=== PATIENT | female | born 1930 | race Caucasian/White ===

== ENCOUNTER 2017-10-19 12:33 | Observation (INO) | payer OTHER ==
[2017-10-19 13:45] LABS: BASO % 1.4 % (0-2.0); EOS % 0.4 % (0-4.5); HEMATOCRIT 42.9 % (32.4-45.2); HEMOGLOBIN 13.7 GM/dL (10.7-15.3); MCH 26.2 pg (25.7-33.7); MEAN PLT VOLUME 9.5 fl (7.5-11.1); MONO % 6.7 % (3.8-10.2); NEUT % 71.5 % (42.8-82.8); PLATELET COUNT 201 K/MM3 (134-434); RBC 5.23 M/mm3 (3.60-5.2); RDW 14.9 % (11.6-15.6); WHITE BLOOD COUNT 7.7 K/mm3 (4.0-10.0)
--- NOTE | 2017-10-19 13:46 | PDOC ---
History of Present Illness - General Chief Complaint: Rectal Bleed Stated Complaint: BLOOD IN URINE Time Seen by Provider: 10/19/17 12:56 History Source: Patient Exam Limitations: No Limitations - History of Present Illness Initial Comments: 10/19/17 14:29 87f with pmh of GERD and arthritis presents with bright red blood per rectum when she wiped her BM twice through the night. Not on blood thinners, never happened to her before. Denies abdominal pain, weakness, dizziness, lightheadedness. Past History - Past Medical History Allergies/Adverse Reactions: Allergies Allergy/AdvReac Type Severity Reaction Status Date / Time Penicillins Allergy Verified 10/19/17 12:52 Home Medications: Ambulatory Orders Amlodipine Besylate [Norvasc] 10 mg PO DAILY 01/17/13 Aspirin [ASA] 81 mg PO DAILY 01/17/13 Simvastatin [Zocor] 20 mg PO HS 01/17/13 Crestor 20 mg PO DAILY 10/19/17 Meloxicam 15 mg PO DAILY 10/19/17 Asthma: No Cancer: No Cardiac Disorders: Yes CVA: No COPD: No Diabetes: Yes HTN: Yes Hypercholesterolemia: Yes - Suicide/Smoking/Psychosocial Hx Smoking Status: No Smoking History: Never smoked Number of Cigarettes Smoked Daily: 0 Hx Alcohol Use: No Drug/Substance Use Hx: No Substance Use Type: None Abd/GI Specific PMHX - Complaint Specific PMHX GERD: Yes *Physical Exam - Vital Signs Last Vital Signs Temp Pulse Resp BP Pulse Ox 98.1 F 85 18 152/68 99 10/19/17 12:49 10/19/17 12:49 10/19/17 12:49 10/19/17 12:49 10/19/17 12:49 ED Treatment Course - LABORATORY CBC & Chemistry Diagram: 10/19/17 17:00 10/19/17 13:34 Medical Decision Making - Medical Decision Making 10/19/17 15:20 All labs negative, hoever patient presented her bright red stool after going to bathroom. Will redraw CBC at 5:30pm 10/19/17 16:13 Ct abdomen and pelvis with contrast pending 10/19/17 19:[address] being sent to reading. 10/19/17 19:10 Patient signed out to Dr. Cunningham. *DC/Admit/Observation/Transfer Diagnosis at time of Disposition: Bright red blood per rectum - Referrals Referrals: Anthony Smith MD [Primary Care Provider] - - Patient Instructions - Post Discharge Activity
[2017-10-19 14:07] LABS: INR 1.03 (0.82-1.09); PROTHROMBIN TIME (PATIENT) 11.6 SEC (9.98-11.88)
--- NOTE | 2017-10-19 14:11 | PDOC ---
Attending Attestation - Resident Resident Name: Vasile Sales - ED Attending Attestation I have performed the following: I have examined & evaluated the patient, The case was reviewed & discussed with the resident, I agree w/resident's findings & plan, Exceptions are as noted - HPI HPI: 10/19/17 13:45 87y F hx of GERD, OA, HTN presents with 2 episodes of stool with some blood when she was wiping last night (bpr, non melantonic) on tissue and toilet paper tjhat stopped spontanoeusly. stool itself was brown in color and well formed, not black or red. No assoicated abdminal pain, dysuria, hematuria. Denies any cp , sob, lightheadedness, n/v. pt on baby asa but no other blood thinners exam soft abdomen w/o tenderness, rebound/guarding No hemrroids, red blood onted on rectal per resident spotting, possibly internal herorroids. no tenderness on abdomen, brown stool, doubt civerticular bleed. will ck guaiac, cbc will reassess the patient 10/19/17 14:23 guaiac positive will repeat CBC at 4 hrs - Physicial Exam PE: 10/24/17 02:42 see above - Medical Decision Making 10/19/17 15:24 pt had a bowel movement that was reddish mixed with stool will obtain CT to r/o diverticular disease as pt is actively having bloody stool here, will observe/admit for observation and trend HGB
[2017-10-19 14:13] LABS: ALK PHOS 50 U/L (45-117); ANION GAP 13 (8-16); BILIRUBIN,TOTAL 0.5 mg/dL (0.2-1.0); BLOOD UREA NITROGEN 28 mg/dL (7-18); CALCIUM 9.9 mg/dL (8.5-10.1); CHLORIDE 101 mmol/L (98-107); CO2 25 mmol/L (21-32); GLUCOSE,RANDOM 120 mg/dL (74-106); POTASSIUM 3.4 mmol/L (3.5-5.1); SGOT/AST 27 U/L (15-37); SGPT/ALT 29 U/L (12-78); SODIUM 139 mmol/L (136-145); TOT PROT 7.7 g/dl (6.4-8.2)
[2017-10-19 14:49] LABS: URINE APPEARANCE CLEAR; URINE BILIRUBIN NEGATIVE (NEGATIVE); URINE BLOOD NEGATIVE (NEGATIVE); URINE COLOR LTYELLOW; URINE GLUCOSE (UA) NEGATIVE (NEGATIVE); URINE KETONE NEGATIVE (NEGATIVE); URINE LEUK ESTERASE NEGATIVE (NEGATIVE); URINE NITRITE NEGATIVE (NEGATIVE); URINE PROTEIN NEGATIVE (NEGATIVE); URINE UROBILINOGEN NEGATIVE mg/dL (0.2-1.0)
[2017-10-19 17:06] LABS: BASO % 0.5 % (0-2.0); EOS % 1.6 % (0-4.5); HEMATOCRIT 40.8 % (32.4-45.2); HEMOGLOBIN 13.4 GM/dL (10.7-15.3); LYMPH % 20.7 % (8-40); MCH 26.6 pg (25.7-33.7); MCHC 32.7 g/dl (32.0-36.0); MEAN CELL VOLUME 81.4 fl (80-96); MEAN PLT VOLUME 9.3 fl (7.5-11.1); MONO % 8.4 % (3.8-10.2); NEUT % 68.8 % (42.8-82.8); PLATELET COUNT 167 K/MM3 (134-434); RBC 5.02 M/mm3 (3.60-5.2); RDW 14.7 % (11.6-15.6); WHITE BLOOD COUNT 7.9 K/mm3 (4.0-10.0)
--- NOTE | 2017-10-19 19:25 | PDOC ---
*Physical Exam - Vital Signs Last Vital Signs Temp Pulse Resp BP Pulse Ox 98.1 F 64 16 141/61 95 10/19/17 18:41 10/19/17 18:41 10/19/17 18:41 10/19/17 18:41 10/19/17 18:41 ED Treatment Course - LABORATORY CBC & Chemistry Diagram: 10/19/17 17:00 10/19/17 13:34 - ADDITIONAL ORDERS Additional order review: Laboratory Results 10/19/17 10/19/17 10/19/17 14:42 13:45 13:38 PT with INR 11.60 INR 1.03 Sodium Potassium Chloride Carbon Dioxide Anion Gap BUN Creatinine Creat Clearance w eGFR Random Glucose Calcium Total Bilirubin AST ALT Alkaline Phosphatase Total Protein Albumin Urine Color Ltyellow Urine Appearance Clear Urine pH 6.0 Ur Specific [place] 1.015 Urine Protein Negative Urine Glucose (UA) Negative Urine Ketones Negative Urine Blood Negative Urine Nitrite Negative Urine Bilirubin Negative Urine Urobilinogen Negative Ur Leukocyte Esterase Negative Stool Occult Blood Positive 10/19/17 13:34 PT with INR INR Sodium 139 Potassium 3.4 L Chloride 101 Carbon Dioxide 25 Anion Gap 13 BUN 28 H Creatinine 1.0 Creat Clearance w eGFR 52.57 Random Glucose 120 H Calcium 9.9 Total Bilirubin 0.5 D AST 27 ALT 29 Alkaline Phosphatase 50 Total Protein 7.7 Albumin 4.0 Urine Color Urine Appearance Urine pH Ur Specific [place] Urine Protein Urine Glucose (UA) Urine Ketones Urine Blood Urine Nitrite Urine Bilirubin Urine Urobilinogen Ur Leukocyte Esterase Stool Occult Blood 10/19/17 10/19/17 17:00 13:34 RBC 5.02 5.23 H MCV 81.4 82.0 MCHC 32.7 32.0 RDW 14.7 14.9 MPV 9.3 9.5 Neutrophils % 68.8 71.5 D Lymphocytes % 20.7 20.0 D Monocytes % 8.4 6.7 Eosinophils % 1.6 D 0.4 D Basophils % 0.5 1.4 *DC/Admit/Observation/Transfer Diagnosis at time of Disposition: Bright red blood per rectum - Discharge Dispostion Admit: Yes - Referrals Referrals: Anthony Smith MD [Primary Care Provider] - - Patient Instructions - Post Discharge Activity
--- NOTE | 2017-10-19 20:27 | HP ---
CHIEF COMPLAINT: Bright red blood per rectum PCP: Luis HISTORY OF PRESENT ILLNESS: This is an 87 year old female with a significant past medical history of GERD and arthritis on meloxicam and ASA who presented to the ED after 2 episodes BRBPR after wiping. In ED pt had an episode of brown stool mixed with bright red. Pt also reports crampy abdominal pain at times, especially just prior to moving her bowels. Pt denies any blood clots. ER course was notable for: (1) Hgb 13.7, repeat 13.4 (2) CT abd/pel neg for diverticulitis/colitis Recent Travel: pt denies PAST MEDICAL HISTORY: GERD, arthritis, HTN, HLD, ?DM-prior chart lists DM but pt denies problems with sugar and is on no medications PAST SURGICAL HISTORY: R foot surgery Social History: Smoking: pt denies Alcohol: pt denies Drugs: pt denies Family History: mother age 83, old age father age 53, shooting Allergies Penicillins Allergy (Verified 10/19/17 12:52) HOME MEDICATIONS: 3 Medication Instructions Recorded Amlodipine Besylate [Norvasc] 10 mg PO DAILY 01/17/13 Aspirin [ASA] 81 mg PO DAILY 01/17/13 Simvastatin [Zocor] 20 mg PO HS 01/17/13 Crestor 20 mg PO DAILY 10/19/17 Meloxicam 15 mg PO DAILY 10/19/17 REVIEW OF SYSTEMS CONSTITUTIONAL: Absent: fever, chills, diaphoresis, generalized weakness, malaise, loss of appetite, weight change HEENT: Absent: rhinorrhea, nasal congestion, throat pain, throat swelling, difficulty swallowing, mouth swelling, ear pain, eye pain, visual changes CARDIOVASCULAR: Absent: chest pain, syncope, palpitations, irregular heart rate, lightheadedness , peripheral edema RESPIRATORY: Absent: cough, shortness of breath, dyspnea with exertion, orthopnea, wheezing, stridor, hemoptysis GASTROINTESTINAL: Present: abdominal pain, hematochezia Absent: abdominal distension, nausea, vomiting, diarrhea, constipation, melena GENITOURINARY: Absent: dysuria, frequency, urgency, hesitancy, hematuria, flank pain, genital pain MUSCULOSKELETAL: Absent: myalgia, arthralgia, joint swelling, back pain, neck pain SKIN: Absent: rash, itching, pallor HEMATOLOGIC/IMMUNOLOGIC: Absent: easy bleeding, easy bruising, lymphadenopathy, frequent infections ENDOCRINE: Absent: unexplained weight gain, unexplained weight loss, heat intolerance, cold intolerance NEUROLOGIC: Absent: headache, focal weakness or paresthesias, dizziness, unsteady gait, seizure, mental status changes, bladder or bowel incontinence PSYCHIATRIC: Absent: anxiety, depression, suicidal or homicidal ideation, hallucinations. PHYSICAL EXAMINATION Vital Signs - 24 hr 3 10/19/17 10/19/17 10/19/17 12:49 18:41 20:17 Temperature 98.1 F 98.1 F 98.6 F Pulse Rate 85 Pulse Rate [ 64 63 Right] Respiratory 18 16 18 Rate Blood Pressure 152/68 Blood Pressure 141/61 135/55 [Left] O2 Sat by Pulse 99 95 93 L Oximetry (%) GENERAL: Awake, alert, and fully oriented, in no acute distress. HEAD: Normal with no signs of trauma. EYES: Pupils equal, round and reactive to light, extraocular movements intact, sclera anicteric, conjunctiva clear. No lid lag. EARS, NOSE, THROAT: Ears normal, nares patent, oropharynx clear without exudates. Moist mucous membranes. NECK: Normal range of motion, supple without lymphadenopathy, JVD, or masses. LUNGS: Breath sounds equal, clear to auscultation bilaterally. No wheezes, and no crackles. No accessory muscle use. HEART: Regular rate and rhythm, normal S1 and S2 without murmur, rub or gallop. ABDOMEN: Soft, nontender, not distended, normoactive bowel sounds, no guarding, no rebound, no masses. No hepatomegaly or splenomegaly. MUSCULOSKELETAL: Normal range of motion at all joints. No bony deformities or tenderness. No CVA tenderness. UPPER EXTREMITIES: 2+ pulses, warm, well-perfused. No cyanosis. No clubbing. No peripheral edema. LOWER EXTREMITIES: 2+ pulses, warm, well-perfused. No calf tenderness. No peripheral edema. NEUROLOGICAL: Cranial nerves II-XII intact. Normal speech. Normal gait. PSYCHIATRIC: Cooperative. Good eye contact. Appropriate mood and affect. SKIN: Warm, dry, normal turgor, no rashes or lesions noted, normal capillary refill. Laboratory Results - last 24 hr 3 10/19/17 10/19/17 10/19/17 13:34 13:34 13:38 WBC 7.7 RBC 5.23 H Hgb 13.7 Hct 42.9 MCV 82.0 MCH 26.2 MCHC 32.0 RDW 14.9 Plt Count 201 MPV 9.5 Neutrophils % 71.5 D Lymphocytes % 20.0 D Monocytes % 6.7 Eosinophils % 0.4 D Basophils % 1.4 PT with INR 11.60 INR 1.03 Sodium 139 Potassium 3.4 L Chloride 101 Carbon Dioxide 25 Anion Gap 13 BUN 28 H Creatinine 1.0 Creat Clearance w eGFR 52.57 Random Glucose 120 H Calcium 9.9 Total Bilirubin 0.5 D AST 27 ALT 29 Alkaline Phosphatase 50 Total Protein 7.7 Albumin 4.0 Urine Color Urine Appearance Urine pH Ur Specific [place] Urine Protein Urine Glucose (UA) Urine Ketones Urine Blood Urine Nitrite Urine Bilirubin Urine Urobilinogen Ur Leukocyte Esterase Stool Occult Blood 3 10/19/17 10/19/17 10/19/17 13:45 14:42 17:00 WBC 7.9 RBC 5.02 Hgb 13.4 Hct 40.8 MCV 81.4 MCH 26.6 MCHC 32.7 RDW 14.7 Plt Count 167 MPV 9.3 Neutrophils % 68.8 Lymphocytes % 20.7 Monocytes % 8.4 Eosinophils % 1.6 D Basophils % 0.5 PT with INR INR Sodium Potassium Chloride Carbon Dioxide Anion Gap BUN Creatinine Creat Clearance w eGFR Random Glucose Calcium Total Bilirubin AST ALT Alkaline Phosphatase Total Protein Albumin Urine Color Ltyellow Urine Appearance Clear Urine pH 6.0 Ur Specific [place] 1.015 Urine Protein Negative Urine Glucose (UA) Negative Urine Ketones Negative Urine Blood Negative Urine Nitrite Negative Urine Bilirubin Negative Urine Urobilinogen Negative Ur Leukocyte Esterase Negative Stool Occult Blood Positive Radiology Reports EXAM: ABDOMEN \T\ PELVIS CT with and without contrast DATE OF SERVICE: 2017-10-19 15:42:43 THIS IS A PRELIMINARY REPORT FROM [facility] HISTORY: Bright rectal bleeding. COMPARISON: None. FINDINGS: Mild apparent rectal and sigmoid colon wall thickening is likely due to poor distention of the lumen. Bowel wall evaluation is limited due to absence of oral contrast. No evidence of a perirectal abscess or induration is seen. No evidence of diverticulitis or colitis. No evidence of bowel obstruction, perforation, free air, free fluid or abscess. Cardiomegaly. Coronary artery calcifications. Right diaphragm elevation. Liver and spleen are unremarkable. No evidence of gallstone or biliary obstruction. Pancreas unremarkable. No urinary stone, mass or obstruction noted. Appendix not identified well. Pericecal fat is clear. 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 Grade 2 anterolisthesis at L5-S1 with bilateral L5 spondylolysis. Atrophy of the uterus. THIS DOCUMENT HAS BEEN ELECTRONICALLY SIGNED Dipak Hess MD 10/19/2017 19:38 EST ASSESSMENT/PLAN: 87yF with PMH GERD, arthritis, HTN, HLD presented to the ED after 2 episodes BRBPR noted when wiping. GI bleed - clear liquid diet until MN, then NPO - NS @ 83cc/hr - GI consult - DC ASA and meloxicam - serial cbc @ 12am and 6am - protonix 40mg IVPB hypokalemia - replete IV given GI bleed, repeat in am HTN - home exforge changed to formulary individual components - hold bp meds if SBP less than 100 HLD - cont home crestor DVT PPX - heparin held secondary to bleeding FEN - NS @ 83cc/hr - bmp in am - Clear liquids then NPO after MN Dispo: pt currently requires further observation and serial labs, admitted to observation status. Visit type - Emergency Visit Emergency Visit: Yes ED Registration Date: 10/19/17 Care time: The patient presented to the Emergency Department on the above date and was hospitalized for further evaluation of their emergent condition. - New Patient This patient is new to me today: Yes Date on this admission: 10/19/17 - Critical Care Critical Care patient: No Hospitalist Screening - Colonoscopy Questionnaire Colonoscopy Questionnaire: Colonoscopy Questionnaire - Patient: 50 - 75 years old and never had a screening colonoscopy: No History of colon or rectal polyps, or CA: No History of IBD, Crohn's disease or UC: No History of abdominal radiation therapy as a child: No - Relative: 1 with colon or rectal CA, or polyps at age 60 or younger: Unknown Colon or rectal CA diagnosed at age 45 or younger: Unknown Multiple relatives with colon or rectal CA: Unknown - Outcome: Screening Result: Negative Screen
[2017-10-19] MEDS ORDERED: KCL 10 MEQ IVPB 10 MEQ/100 ML INFUS.BAG IVPB SCH (20:30)
[2017-10-19] MEDS: POTASSIUM CHLORIDE 10 MEQ in SODIUM CHLORIDE 100 ML IVPB SCH ×3 (21:07→22:48)
[2017-10-19] MEDS ORDERED: KCL 10 MEQ IVPB 10 MEQ/100 ML INFUS.BAG IVPB ONE (21:07)
[2017-10-19] MEDS ORDERED: KCL 10 MEQ IVPB 20 MEQ/200 ML INFUS.BAG IVPB ONE (21:09)
[2017-10-19] MEDS ORDERED: CRESTOR 20 MG PO SCH (22:00)
[2017-10-19] MEDS: SODIUM CHLORIDE 1,000 ML IV SCH (22:44)
[2017-10-19] MEDS ORDERED: ROSUVASTATIN CA 10 MG TABLET (FP) ONE (22:47)
[2017-10-19] MEDS: ROSUVASTATIN CA 20 MG TABLET (FP) PO SCH (22:48)
[2017-10-20 00:57] VITALS: BMI 27.3
[2017-10-20] MEDS: POTASSIUM CHLORIDE 10 MEQ in SODIUM CHLORIDE 100 ML IVPB SCH (01:31)
[2017-10-20 02:54] LABS: HEMATOCRIT 41.7 % (32.4-45.2); HEMOGLOBIN 13.6 GM/dL (10.7-15.3); MCH 26.5 pg (25.7-33.7); MCHC 32.6 g/dl (32.0-36.0); MEAN CELL VOLUME 81.5 fl (80-96); MEAN PLT VOLUME 9.8 fl (7.5-11.1); PLATELET COUNT 184 K/MM3 (134-434); RBC 5.11 M/mm3 (3.60-5.2); RDW 14.7 % (11.6-15.6); WHITE BLOOD COUNT 10.6 K/mm3 (4.0-10.0)
[2017-10-20 07:40] LABS: BASO % 0.5 % (0-2.0); EOS % 0.7 % (0-4.5); HEMATOCRIT 41.6 % (32.4-45.2); HEMOGLOBIN 13.4 GM/dL (10.7-15.3); LYMPH % 20.7 % (8-40); MCH 26.4 pg (25.7-33.7); MCHC 32.1 g/dl (32.0-36.0); MEAN CELL VOLUME 82.1 fl (80-96); MEAN PLT VOLUME 9.6 fl (7.5-11.1); MONO % 8.3 % (3.8-10.2); NEUT % 69.8 % (42.8-82.8); PLATELET COUNT 193 K/MM3 (134-434); RBC 5.07 M/mm3 (3.60-5.2); RDW 15.1 % (11.6-15.6); WHITE BLOOD COUNT 8.4 K/mm3 (4.0-10.0)
[2017-10-20 08:02] LABS: CHLORIDE 103 mmol/L (98-107); POTASSIUM 3.4 mmol/L (3.5-5.1); SODIUM 139 mmol/L (136-145)
[2017-10-20 08:07] LABS: ANION GAP 10 (8-16); BLOOD UREA NITROGEN 22 mg/dL (7-18); CALCIUM 8.7 mg/dL (8.5-10.1); CO2 26 mmol/L (21-32); CREATININE 0.9 mg/dL (0.55-1.02); GLUCOSE,RANDOM 103 mg/dL (74-106)
[2017-10-20] MEDS ORDERED: PATIENT'S OWN MEDICATION (NON-FORMULARY) (Amlodipine/Valsartan/Hcthiazid [Amlod-Valsa-Hctz PO SCH (10:00)
[2017-10-20] MEDS ORDERED: HYDROCHLOROTHIAZIDE 25 MG TABLET (FP) PO SCH (10:00)
[2017-10-20] MEDS ORDERED: amLODIPine BESYLATE 10 MG TABLET (FP) PO SCH (10:00)
[2017-10-20] MEDS ORDERED: VALSARTAN 160 MG TABLET (UD) PO SCH (10:00)
[2017-10-20] MEDS ORDERED: POTASSIUM CHLORIDE TABS 20 MEQ TABLET.ER (FP) PO ONE (12:03)
--- NOTE | 2017-10-20 12:06 | PN ---
Progress Note, Physician Chief Complaint: today patient noted a few drops of blood per rectum when she went to bathroom - Current Medication List Current Medications: Active Medications Amlodipine Besylate (Norvasc -) 10 mg PO DAILY [facility] Last Admin: 10/20/17 09:04 Dose: 10 mg Hydrochlorothiazide (Hctz -) 25 mg PO DAILY [facility] Last Admin: 10/20/17 09:05 Dose: 25 mg Sodium Chloride (Normal Saline -) 1,000 mls @ 75 mls/hr IV ASDIR [facility] Last Admin: 10/19/17 22:44 Dose: 75 mls/hr Rosuvastatin Calcium (Crestor -) 20 mg PO HS [facility] Last Admin: 10/19/17 22:48 Dose: 20 mg Valsartan (Diovan -) 160 mg PO DAILY [facility] Last Admin: 10/20/17 09:04 Dose: 160 mg - Objective Vital Signs: Vital Signs Temperature 98.1 F 10/20/17 09:00 Pulse Rate 67 10/20/17 09:00 Respiratory Rate 20 10/20/17 09:00 Blood Pressure 147/57 10/20/17 09:00 O2 Sat by Pulse Oximetry (%) 95 10/20/17 09:00 Constitutional: Yes: Calm Cardiovascular: Yes: Regular Rate and Rhythm, S1, S2 Respiratory: Yes: CTA Bilaterally Gastrointestinal: Yes: Normal Bowel Sounds, Soft Edema: No Neurological: Yes: Alert, Oriented Labs: CBC, BMP 10/20/17 06:00 10/20/17 06:00 INR, PTT INR 1.03 (0.82-1.09) 10/19/17 13:38 Problem List - Problems (1) Bright red blood per rectum Assessment/Plan: h/h stable will keep NPO till seen by GI- possible EGD/colonscopy ppi Code(s): K62.5 - HEMORRHAGE OF ANUS AND RECTUM (2) HTN (hypertension) Assessment/Plan: norvasc and valsartan stop hctz given elevated bun Code(s): I10 - ESSENTIAL (PRIMARY) HYPERTENSION
[2017-10-20] MEDS ORDERED: PANTOPRAZOLE SODIUM 40 MG VIAL IVPUSH SCH (12:15)
[2017-10-20] MEDS: SODIUM CHLORIDE 1,000 ML IV SCH ×2 (13:46→21:27)
--- NOTE | 2017-10-20 17:04 | EKG ---
Test Reason : Blood Pressure : / mmHG Vent. Rate : 074 BPM Atrial Rate : 074 BPM P-R Int : 138 ms QRS Dur : 078 ms QT Int : 384 ms P-R-T Axes : 029 012 043 degrees QTc Int : 426 ms NORMAL SINUS RHYTHM NONSPECIFIC T WAVE ABNORMALITY ABNORMAL ECG WHEN COMPARED WITH ECG OF 18-JAN-2013 10:00, NO SIGNIFICANT CHANGE WAS FOUND Confirmed by COREEN DUNN MD ([id number]) on 10/20/2017 5:03:56 PM Referred By: Confirmed By:COREEN DUNN MD
[2017-10-20] MEDS ORDERED: SODIUM PHOSPHATE/NA BIPHOS 133 ML ENEMA PR ONE (20:20)
--- NOTE | 2017-10-20 20:29 | CON.GI ---
Consult Consult Specialty:: gastroenterology Referred by:: Dr Kim - History of Present Illness History of Present Illness: 87 y/o F with PMH of gastric ulcer was admitted with rectal bleeding, no nausea and no vomiting. Patient has frequent heartburns, epigastric pain and bloating. - History Source History Provided By: Patient - Alcohol/Substance Use Hx Alcohol Use: No - Smoking History Smoking history: Never smoked Aproximately how many cigarettes per day: 0 Home Medications - Allergies Allergies/Adverse Reactions: Allergies Allergy/AdvReac Type Severity Reaction Status Date / Time Penicillins Allergy Verified 10/19/17 12:52 - Home Medications Home Medications: Ambulatory Orders Aspirin [ASA] 81 mg PO DAILY 01/17/13 Amlodipine/Valsartan/Hcthiazid [[id number]-[id number]-Lmts 10-160-25 mg] 1 each PO DAILY 10/19/17 Crestor 20 mg PO DAILY 10/19/17 L.acidoph,Paracasei, B.lactis [Probiotic] 1 each PO DAILY 10/19/17 Meloxicam 15 mg PO DAILY 10/19/17 Physical Exam-GI Vital Signs: Vital Signs Temperature 98.2 F 10/20/17 14:48 Pulse Rate 62 10/20/17 14:48 Respiratory Rate 20 10/20/17 09:00 Blood Pressure 120/57 10/20/17 14:48 O2 Sat by Pulse Oximetry (%) 95 10/20/17 09:00 Constitutional: Yes: Well Nourished Eyes: Yes: Conjunctiva Clear HENT: Yes: Atraumatic Neck: Yes: Trachea Midline Cardiovascular: Yes: Regular Rate and Rhythm Respiratory: Yes: CTA Bilaterally ...Palpate: Yes: Soft. No: Firm/Rigid, Guarding, Hepatomegaly, Mass, Pulsatile Mass, Splenomegaly, Tenderness Labs: CBC, BMP 10/20/17 06:00 10/20/17 06:00 INR, PTT INR 1.03 (0.82-1.09) 10/19/17 13:38 Problem List - Problems (1) Bright red blood per rectum Assessment/Plan: R> for colonoscopy to r/o neoplasm Code(s): K62.5 - HEMORRHAGE OF ANUS AND RECTUM (2) Epigastric pain Assessment/Plan: r/o peptic ulcer disease R> for EGD Code(s): R10.13 - EPIGASTRIC PAIN
[2017-10-20] MEDS ORDERED: MAGNESIUM CITRATE 300 ML BOTTLE PO ONE ×2 (20:30→23:00)
[2017-10-20] MEDS ORDERED: ROSUVASTATIN CA 10 MG TABLET (FP) ONE (21:23)
[2017-10-20] MEDS: ROSUVASTATIN CA 20 MG TABLET (FP) PO SCH (21:29)
--- NOTE | 2017-10-20 23:12 | CONSULT ---
Consult Consult Specialty:: endocrine Referred by:: dr.saba arboleda Reason for Consultation:: endocrine - History of Present Illness Chief Complaint: weakness History of Present Illness: 87y F hx of GERD, OA, HTN,osteoporosis on prolia infusion every 6 months last taken april 2017. presents with 2 episodes of stool with some blood when she was wiping last night (bpr, non melantonic) on tissue and toilet paper tjhat stopped spontanoeusly. stool itself was brown in color and well formed, not black or red. No assoicated abdminal pain, dysuria, hematuria. Denies any cp , sob, cough chill,or vomiting - History Source History Provided By: Patient - Alcohol/Substance Use Hx Alcohol Use: No - Smoking History Smoking history: Never smoked Aproximately how many cigarettes per day: 0 Home Medications - Allergies Allergies/Adverse Reactions: Allergies Allergy/AdvReac Type Severity Reaction Status Date / Time Penicillins Allergy Verified 10/19/17 12:52 - Home Medications Home Medications: Ambulatory Orders Aspirin [ASA] 81 mg PO DAILY 01/17/13 Amlodipine/Valsartan/Hcthiazid [Nksxh-Pzjfh-Otzr 10-160-25 mg] 1 each PO DAILY 10/19/17 Crestor 20 mg PO DAILY 10/19/17 L.acidoph,Paracasei, B.lactis [Probiotic] 1 each PO DAILY 10/19/17 Meloxicam 15 mg PO DAILY 10/19/17 Review of Systems - Review of Systems Constitutional: reports: Lethargy, Weakness Eyes: reports: No Symptoms HENT: reports: No Symptoms Neck: reports: No Symptoms Cardiovascular: reports: Shortness of Breath Respiratory: reports: Exercise Intolerance, SOB on Exertion Gastrointestinal: reports: Bloating, Nausea Genitourinary: reports: No Symptoms Breasts: reports: No Symptoms Reported Musculoskeletal: reports: Muscle Cramps, Muscle Weakness Integumentary: reports: No Symptoms Endocrine: reports: Intolerance to Cold, Unexplained Weight Loss Physical Exam Vital Signs: Vital Signs Temperature 98 F 10/20/17 22:00 Pulse Rate 68 10/20/17 22:00 Respiratory Rate 20 10/20/17 22:00 Blood Pressure 126/72 10/20/17 22:00 O2 Sat by Pulse Oximetry (%) 95 10/20/17 09:00 Constitutional: Yes: Calm Eyes: Yes: EOM Intact HENT: Yes: Normocephalic Neck: Yes: Trachea Midline Cardiovascular: Yes: Regular Rate and Rhythm Respiratory: Yes: CTA Bilaterally Gastrointestinal: Yes: Normal Bowel Sounds ...Rectal Exam: Yes: Guaiac Positive Renal/: Yes: WNL Breast(s): Yes: WNL Musculoskeletal: Yes: WNL Edema: No Peripheral Pulses WNL: Yes Neurological: Yes: Alert, Oriented Labs: CBC, BMP 10/20/17 06:00 10/20/17 06:00 Problem List - Problems (1) Osteoporosis Code(s): M81.0 - AGE-RELATED OSTEOPOROSIS W/O CURRENT PATHOLOGICAL FRACTURE (2) Bright red blood per rectum Code(s): K62.5 - HEMORRHAGE OF ANUS AND RECTUM (3) Epigastric pain Code(s): R10.13 - EPIGASTRIC PAIN (4) HTN (hypertension) Code(s): I10 - ESSENTIAL (PRIMARY) HYPERTENSION Assessment/Plan Current Active Problems Bright red blood per rectum (Acute) Epigastric pain (Acute) HTN (hypertension) (Acute) osteoporosis osteomalacia Abnormal Lab Results 10/20/17 10/20/17 02:10 06:00 WBC 10.6 H D Potassium 3.4 L BUN 22 H Laboratory Results - last 24 hr 10/20/17 10/20/17 10/20/17 02:10 06:00 06:00 WBC 10.6 H D 8.4 RBC 5.11 5.07 Hgb 13.6 13.4 Hct 41.7 41.6 MCV 81.5 82.1 MCH 26.5 26.4 MCHC 32.6 32.1 RDW 14.7 15.1 Plt Count 184 193 MPV 9.8 9.6 Neutrophils % 69.8 Lymphocytes % 20.7 Monocytes % 8.3 Eosinophils % 0.7 Basophils % 0.5 Sodium 139 Potassium 3.4 L Chloride 103 Carbon Dioxide 26 Anion Gap 10 BUN 22 H Creatinine 0.9 POC Glucometer Random Glucose 103 Calcium 8.7 Phosphorus 4.0 Magnesium 2.0 10/20/17 21:27 WBC RBC Hgb Hct MCV MCH MCHC RDW Plt Count MPV Neutrophils % Lymphocytes % Monocytes % Eosinophils % Basophils % Sodium Potassium Chloride Carbon Dioxide Anion Gap BUN Creatinine POC Glucometer 78 Random Glucose Calcium Phosphorus Magnesium plan: replace fluids, gi workup vitamin d [id number] weekly
[2017-10-21] MEDS ORDERED: MAGNESIUM CITRATE 300 ML BOTTLE PO ONE (01:00)
[2017-10-21] MEDS: SODIUM PHOSPHATE/NA BIPHOS 133 ML ENEMA PR ONE ×2 (04:51→04:56)
[2017-10-21] MEDS ORDERED: LIDOCAINE HCL 2% (20ML MULTI-DOSE VIAL) NR ONE (07:29)
[2017-10-21] MEDS ORDERED: PROPOFOL 20 ML ONE ×3 (07:30)
[2017-10-21] MEDS ORDERED: SODIUM CHLORIDE 1,000 ML IV SCH (08:51)
[2017-10-21] MEDS ORDERED: PANTOPRAZOLE 40 MG TABLET (FP) PO SCH (10:00)
[2017-10-21] MEDS ORDERED: VALSARTAN 160 MG TABLET (UD) PO SCH (10:00)
[2017-10-21] MEDS ORDERED: amLODIPine BESYLATE 10 MG TABLET (FP) PO SCH (10:00)
--- NOTE | 2017-10-21 11:21 | DS ---
Physical Examination Vital Signs: Vital Signs Temperature 96 F L 10/21/17 08:11 Pulse Rate 66 10/21/17 08:49 Respiratory Rate 18 10/21/17 08:49 Blood Pressure 126/50 10/21/17 08:49 O2 Sat by Pulse Oximetry (%) 100 10/21/17 08:49 no more blood per rectum s/p EGD Constitutional: Yes: Calm Neck: Yes: Trachea Midline Cardiovascular: Yes: Regular Rate and Rhythm, S1, S2 Respiratory: Yes: CTA Bilaterally Gastrointestinal: Yes: Normal Bowel Sounds, Soft Edema: No Neurological: Yes: Alert, Oriented Labs: CBC, BMP 10/20/17 06:00 10/20/17 06:00 Discharge Summary Reason For Visit: BRIGHT RED BLOOD PER RECTUM Current Active Problems Bright red blood per rectum (Acute) Epigastric pain (Acute) HTN (hypertension) (Acute) Osteoporosis (Acute) Hospital Course: HI COMPLAINT: Bright red blood per rectum PCP: Luis HISTORY OF PRESENT ILLNESS: This is an 87 year old female with a significant past medical history of GERD and arthritis on meloxicam and ASA who presented to the ED after 2 episodes BRBPR after wiping. In ED pt had an episode of brown stool mixed with bright red. Pt also reports crampy abdominal pain at times, especially just prior to moving her bowels. Pt denies any blood clots. ER course was notable for: (1) Hgb 13.7, repeat 13.4 (2) CT abd/pel neg for diverticulitis/colitis s/p EGD abnormal gastric mucosa biopsy take famotidine 40mg daily and low salt diet,polyp noted an biopsy taken FU with GI for pathology reports h/h stable Condition: Stable - Instructions Referrals: Anthony Smith MD [Primary Care Provider] - Disposition: HOME - Home Medications Comprehensive Discharge Medication List: Ambulatory Orders Aspirin [ASA] 81 mg PO DAILY 01/17/13 Amlodipine/Valsartan/Hcthiazid [Uuyfg-Fvljv-Kiwv 10-160-25 mg] 1 each PO DAILY 10/19/17 Crestor 20 mg PO DAILY 10/19/17 L.acidoph,Paracasei, B.lactis [Probiotic] 1 each PO DAILY 10/19/17 Meloxicam 15 mg PO DAILY 10/19/17
[2017-10-21 12:24] VITALS: BP 118/47; PULSE 67; TEMP 97.7
[2017-10-21] MEDS ORDERED: metroNIDAZOLE 250 MG TABLET PO SCH (14:00)
[2017-10-21] MEDS ORDERED: ROSUVASTATIN CA 20 MG TABLET (FP) PO SCH (22:00)
--- NOTE | 2017-10-22 13:05 | PATH ---
Surgical Pathology Report Patient Name: VALERIE DISLA [facility]. Rec. #: [id number] /Age/Gender: 1930 (Age: 87) / F Account: [id number] Location: [address] [place] [address] Taken: 10/21/2017 Received: 10/21/2017 Reported: 10/22/2017 Physicians: Kwame Thompson M.D. Specimen(s) Received A: BX GASTRIC POLYP B: BX BODY STOMACH C: BX PROXIMAL SIGMOID D: BX MID SIGMOID E: BX RECTAL SIGMOID Clinical History Preoperative diagnosis: History of gastric ulcer, GI bleeding Postoperative diagnosis: Gastric polyp, gastritis, rectal sigmoid ischemia Final Diagnosis A. 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 NO DYSPLASIA IDENTIFIED. IMMUNOSTAIN FOR H. PYLORI IS POSITIVE (MODERATE NUMBER OF ORGANISMS). B. STOMACH, BODY, BIOPSY: MODERATE TO SEVERE CHRONIC ACTIVE GASTRITIS. IMMUNOSTAIN FOR H. PYLORI IS POSITIVE (MANY ORGANISMS). C. COLON, PROXIMAL SIGMOID, BIOPSY: COLONIC MUCOSA WITH ISCHEMIC COLITIS. D. COLON, MIDSIGMOID, BIOPSY: COLONIC MUCOSA WITH DENUDEMENT OF SURFACE EPITHELIUM, AND FOCAL AREAS SUGGESTIVE OF ISCHEMIC CHANGE. E. COLON, RECTAL SIGMOID, BIOPSY: ISCHEMIC COLITIS, WITH ADJACENT AREAS SHOWING EXTRAVASATION OF RED BLOOD CELLS WITHIN LAMINA PROPRIA ALONG WITH MILD MUCOSAL HYPERPLASTIC CHANGES. Electronically Signed Stew Hunter M.D. Gross Description A. Received in formalin, labeled "biopsy gastric polyp" are 4 decker, irregular portions of soft tissue ranging from 0.1-0.3 cm. in greatest dimension. The specimens are submitted in toto in one cassette. B. Received in formalin, labeled "biopsy body" are 2 decker, irregular portions of soft tissue measuring 0.4 and 0.7 cm. in greatest dimension. The specimens are submitted in toto in one cassette. C. Received in formalin, labeled "biopsy proximal sigmoid" are 2 decker, irregular portions of soft tissue measuring 0.2 and 0.3 cm. in greatest dimension. The specimens are submitted in toto in one cassette. D. Received in formalin, labeled "biopsy mid sigmoid" are 2 decker, irregular portions of soft tissue measuring 0.2 and 0.3 cm. in greatest dimension. The specimens are submitted in toto in one cassette. E. Received in formalin, labeled "biopsy rectal sigmoid" are 2 decker, irregular portions of soft tissue measuring 0.2 and 0.3 cm. in greatest dimension. The specimens are submitted in toto in one cassette. 10/21/201710/21/2017
== END 2017-10-21 12:45 | disposition home or self-care (01) ==
LOC: JER 12:33 → JERBED 19:25 → J6S 21:39
PROVIDERS: ADMIT Internal Medicine; ATTEND Family Medicine
PROC: 0DB68ZX Excision of Stomach, Via Natural or Artificial Opening Endoscopic, Diagnostic (ICD-10-PCS; principal; 2017-10-19)
PROC: 0DBN8ZX Excision of Sigmoid Colon, Via Natural or Artificial Opening Endoscopic, Diagnostic (ICD-10-PCS; 2017-10-19)
PROC: 3E033GC Introduction of Other Therapeutic Substance into Peripheral Vein, Percutaneous Approach (ICD-10-PCS; 2017-10-19)
PROC: 3E0337Z Introduction of Electrolytic and Water Balance Substance into Peripheral Vein, Percutaneous Approach (ICD-10-PCS; 2017-10-19)
DX: K62.5 Hemorrhage of anus and rectum (principal); E87.6 Hypokalemia; I10 Essential (primary) hypertension; E78.5 Hyperlipidemia, unspecified; K21.9 Gastro-esophageal reflux disease without esophagitis; M19.90 Unspecified osteoarthritis, unspecified site; M81.0 Age-related osteoporosis without current pathological fracture; R10.13 Epigastric pain; K29.60 Other gastritis without bleeding; B96.81 Helicobacter pylori [H. pylori] as the cause of diseases classified elsewhere; K31.7 Polyp of stomach and duodenum; K55.8 Other vascular disorders of intestine; Z88.0 Allergy status to penicillin; Z79.82 Long term (current) use of aspirin
CPT/HCPCS: 36415; 74177-TC; 80048; 80053; 81003; 82272; 82962; 83735; 84100; 85025; 85027; 85610; 87045; 87046; 87177; 87186; 87209; 88305-TC; 88342-TC; 93005; 93010; 96374; 99284-25; G0378

== ENCOUNTER → 2019-03-19 | Emergency (ER) | payer OTHER | LOC: JER 09:36 ==